=== PATIENT | male | born 1995 ===

== ENCOUNTER 2016-06-28 18:10 | Emergency (ER) | payer OTHER ==
[2016-06-28 18:20] VITALS: BP 147/91; PULSE 104; RESP 18; TEMP 98.1; O2SAT 99
--- NOTE | 2016-06-28 18:56 | ED PDOC ---
HPI: General Adult Time Seen by Provider: 06/28/16 18:23 Chief Complaint (Nursing): Body Fluid Exposure Chief Complaint (Provider): Body Fluid Exposure History Per: Patient History/Exam Limitations: no limitations Onset/Duration Of Symptoms: Mins Current Symptoms Are (Timing): Still Present Additional Complaint(s): Issac Grey is a 21 year old male that works as a [place] [employer]. 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 Patient reports no open wounds on left forearm, but was instructed to come to ED by his commanding officer for blood work. Past Medical History Reviewed: Historical Data, Nursing Documentation, Vital Signs Vital Signs: Last Vital Signs Temp 98.1 F 06/28/16 18:17 Pulse 104 H 06/28/16 18:17 Resp 18 06/28/16 18:17 BP 147/91 H 06/28/16 18:17 Pulse Ox 99 06/28/16 19:00 - Family History Family History: States: Unknown Family Hx - Home Medications Home Medications: Ambulatory Orders Medication Instructions Recorded No Known Home Med [No Known Home 02/04/14 Med] - Allergies Allergies/Adverse Reactions: Allergies Allergy/AdvReac Type Severity Reaction Status Date / Time No Known Allergies Allergy Verified 02/04/14 09:57 Review of Systems ROS Statement: Except As Marked, All Systems Reviewed And Found Negative Physical Exam - Reviewed Nursing Documentation Reviewed: Yes Vital Signs Reviewed: Yes - Physical Exam Appears: Positive for: Non-toxic, No Acute Distress Head Exam: Positive for: ATRAUMATIC, NORMOCEPHALIC Skin: Positive for: Normal Color, Warm. Negative for: Rash (no rash of left arm ) Extremity: Positive for: Other (Left upper extremity no break in skin integrity. No rash on area. ) Neurologic/Psych: Positive for: Alert, Oriented - ECG O2 Sat by Pulse Oximetry: 99 (RA) Pulse Ox Interpretation: Normal - Progress ED Course And Treament: Need for antiretroviral therapy discussed and pt. agrees that he does not need it at this time. Medical Decision Making Medical Decision Making: Impression: Body Fluid Exposure of Left Upper Extremity Plan: * Hepatitis B Core AB * Hepatitis B Surface AG * Hepatitis C Antibody * Rapid HIV * Reevaluation Scribe Attestation: Documented by Kaela Doll, acting as a scribe for Monico Koch PA-C. Provider Scribe Attestation: All medical record entries made by the Scribe were at my direction and personally dictated by me. I have reviewed the chart and agree that the record accurately reflects my personal performance of the history, physical exam, medical decision making, and the department course for this patient. I have also personally directed, reviewed, and agree with the discharge instructions and disposition. Disposition - Clinical Impression Clinical Impression: Exposure to blood - Patient ED Disposition Is Patient to be Admitted: No - Disposition Disposition: Routine/Home Disposition Time: 20:25 Condition: STABLE Instructions: Body Substance Exposure (ED) Print Language: [place]
== END 2016-06-28 20:48 | disposition home or self-care (01) ==
LOC: H.ER 18:10
DX: Z77.21 Contact with and (suspected) exposure to potentially hazardous body fluids (principal); Y99.0 Civilian activity done for income or pay